=== PATIENT | female | born 1950 | race Caucasian/White ===

== ENCOUNTER 2025-02-11 11:06 | Emergency (ER) | payer MEDICARE, OTHER ==
[~2025-02-11] VITALS: Ht 170.2 cm; Wt 76.2 kg
[2025-02-11] MEDS ORDERED: PRED20TA PO (11:25)
[2025-02-11] MEDS ORDERED: SIMV-46 PO (11:25)
[2025-02-11] MEDS ORDERED: ONDANSETRON 4 MG/2 ML VIAL ONE (12:01)
[2025-02-11] MEDS ORDERED: HYDROMORPHONE 1 MG/1 ML DISP.SYRIN ONE (12:02)
[2025-02-11 12:14] LABS: BASOPHILS # (AUTO) 0.1 K/UL (0.0-0.2); BASOPHILS % (AUTO) 0.6 % (0.0-2.0); HEMATOCRIT 39.5 % (31.2-41.9); HEMOGLOBIN 13.2 g/dL (10.9-14.3); LYMPHOCYTES # (AUTO) 1.3 K/uL (0.8-4.8); LYMPHOCYTES % (AUTO) 14.6 % (20.5-51.5); MEAN CORPUSCULAR HEMOGLOBIN 30.7 uug (24.7-32.8); MEAN CORPUSCULAR HGB CONC 33 g/dL (32.3-35.6); MEAN CORPUSCULAR VOLUME 91.9 fL (75.5-95.3); MONOCYTES # (AUTO) 0.2 K/uL (0.1-1.30); MONOCYTES % (AUTO) 2.7 % (0.0-11.0); NEUTROPHILS # (AUTO) 7.2 K/uL (1.8-8.9); NEUTROPHILS % (AUTO) 82.1 % (38.5-71.5); PLATELET COUNT (AUTO) 199 K/uL (179-408); RED BLOOD CELL COUNT(AUTO) 4.29 MIL/uL (3.63-4.92); RED CELL DISTRIBUTION WIDTH 13.5 % (12.3-17.7); WHITE BLOOD COUNT (AUTO) 8.8 K/uL (3.8-11.8)
[2025-02-11] MEDS: HYDROMORPHONE 1 MG/1 ML DISP.SYRIN IV ONE (12:14)
[2025-02-11] MEDS: ONDANSETRON 4 MG/2 ML VIAL IV ONE (12:14)
[2025-02-11 12:15] LABS: DIFFERENTIAL COMMENT 1
[2025-02-11 12:22] LABS: CALCIUM 9.5 mg/dL (8.5-10.1); CARBON DIOXIDE 24 mmol/L (21-32); CHLORIDE 105 mmol/L (98-107); CREATININE 0.7 mg/dL (0.6-1.3); GLUCOSE 136 mg/dL (74-106); SODIUM SERUM 139 mmol/L (136-145); UREA NITROGEN, BLOOD 16 mg/dL (7-18)
[2025-02-11 12:34] LABS: ALANINE AMINOTRANSFERASE 24 U/L (14-59); ALBUMIN 3.5 g/dL (3.4-5.0); ALKALINE PHOSPHATASE 91 U/L (50-136); ASPARTATE AMINOTRANSFERASE 20 U/L (15-37); BILIRUBIN,DIRECT 0.1 mg/dL (0.0-0.2); BILIRUBIN,TOTAL 0.4 mg/dL (0.2-1.0); NT-PRO BNP 105 pg/mL (0-125); TOTAL PROTEIN, SERUM 7.6 g/dL (6.4-8.2)
[2025-02-11] MEDS ORDERED: HYDR-3972 PO (13:16)
[2025-02-11] MEDS ORDERED: MELO15TA13 PO (13:16)
[2025-02-11 13:36] VITALS: BP 146/89; TEMP 97.6; O2SAT 98
== END 2025-02-11 13:34 | disposition home or self-care (01) ==
LOC: ER 11:06
DX: M47.816 Spondylosis without myelopathy or radiculopathy, lumbar region (principal); E78.5 Hyperlipidemia, unspecified; Z79.1 Long term (current) use of non-steroidal anti-inflammatories (NSAID); Z79.52 Long term (current) use of systemic steroids; Z79.899 Other long term (current) drug therapy; Z88.0 Allergy status to penicillin; Z88.1 Allergy status to other antibiotic agents; Z88.6 Allergy status to analgesic agent
CPT/HCPCS: 99285; 96374; 72131; 96375; 80076; 80048; 83880; 85025; 85379; 85651; 85730; 84484; 36415; J1171; J2405; A4606; A4663